=== PATIENT | male | born 1975 | race Caucasian/White ===

== ENCOUNTER 2016-06-12 13:28 | Emergency (ER) | payer MEDICAID, OTHER ==
[~2016-06-12] VITALS: Ht 180.3 cm; Wt 88.0 kg
[2016-06-12] MEDS ORDERED: KETOROLAC 60MG/2ML VIAL IM ONE (17:45)
[2016-06-12 18:05] VITALS: BP 141/98
== END 2016-06-12 21:54 | disposition home or self-care (01) ==
LOC: ER 18:42
DX: S93.692A Other sprain of left foot, initial encounter (principal); F17.200 Nicotine dependence, unspecified, uncomplicated; F12.10 Cannabis abuse, uncomplicated; Z88.2 Allergy status to sulfonamides; X58.XXXA Exposure to other specified factors, initial encounter; Y93.89 Activity, other specified; Y99.8 Other external cause status; Y92.89 Other specified places as the place of occurrence of the external cause
CPT/HCPCS: 73630; 96372; 99284; J1885; J7030; Z7610

== ENCOUNTER 2021-03-09 13:57 | Emergency (ER) | payer BC, MEDICAID, OTHER ==
[~2021-03-09] VITALS: Ht 172.7 cm; Wt 87.0 kg
[2021-03-09 14:43] VITALS: BP 163/106
[2021-03-09] MEDS ORDERED: IBUP-2030 MT (16:08)
[2021-03-09] MEDS ORDERED: AMOX-424 MT (16:08)
== END 2021-03-09 17:07 | disposition home or self-care (01) ==
LOC: ER 13:57
DX: L03.116 Cellulitis of left lower limb (principal)
CPT/HCPCS: 73630; 99283

== ENCOUNTER 2021-08-08 09:41 | Emergency (ER) | payer OTHER ==
[~2021-08-08] VITALS: Ht 180.3 cm; Wt 89.0 kg
[~2021-08-08 09:41] MED LIST: AMOX-424 MT; IBUP-2030 MT
[2021-08-08 10:03] VITALS: BP 173/114
[2021-08-08] MEDS ORDERED: KETOROLAC 60MG/2ML VIAL IM ONE (10:15)
[2021-08-08] MEDS ORDERED: NAPR-681 MT (11:52)
== END 2021-08-08 12:08 | disposition home or self-care (01) ==
LOC: ER 09:41
DX: S90.32XA Contusion of left foot, initial encounter (principal); X50.0XXA Overexertion from strenuous movement or load, initial encounter; Y93.89 Activity, other specified; Y92.89 Other specified places as the place of occurrence of the external cause; Y99.0 Civilian activity done for income or pay
CPT/HCPCS: 73630; 99283